=== PATIENT | female | born 1990 ===

== ENCOUNTER 2021-10-10 20:01 | Emergency (ER) | payer OTHER ==
[2021-10-10 20:35] VITALS: BP 126/80
[2021-10-10 21:15] LABS: Basophils # (Auto) 0.1 K/mm3 (0.0-0.1); Basophils % (Auto) 0.9 % (0.0-1.8); Eosinophils # (Auto) 0.2 K/mm3 (0.0-0.4); Eosinophils % (Auto) 3.3 % (0.0-4.3); Hematocrit 40.5 % (30.3-42.9); Hemoglobin 13.9 gm/dl (10.1-14.3); Lymphocytes # (Auto) 2.6 K/mm3 (1.2-5.4); Lymphocytes % (Auto) 43.2 % (13.4-35.0); Mean Corpuscular HGB Conc 34 % (30-34); Mean Corpuscular Volume 93 fl (79-97); Monocytes # (Auto) 0.4 K/mm3 (0.0-0.8); Monocytes % (Auto) 7.2 % (0.0-7.3); Platelet Count 280 K/mm3 (140-440); Red Blood Count 4.34 M/mm3 (3.65-5.03); Red Cell Distribution Width 12.4 % (13.2-15.2)
[2021-10-10 21:40] LABS: Alanine Aminotransferase 25 units/L (7-56); Albumin 4.8 g/dL (3.9-5); BUN/Creatinine Ratio 20; Blood Urea Nitrogen 16 mg/dL (7-17); Calcium 9.8 mg/dL (8.4-10.2); Hemolysis Index 7
--- NOTE | 2021-10-11 13:31 | Electrocardiograph Report ---
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
== END 2021-10-10 22:30 | disposition left against medical advice (07) ==
LOC: ED 20:01
DX: R07.9 Chest pain, unspecified (principal); Z53.21 Procedure and treatment not carried out due to patient leaving prior to being seen by health care provider
CPT/HCPCS: 36415; 80053; 84484; 85025; 93005